=== PATIENT | female | born 1955 ===

== ENCOUNTER 2023-07-20 08:26 | Outpatient (AMB) | payer OTHER, SELFPAY ==
--- NOTE | 2023-07-20 08:30 | A.OFFVIS_ITS ---
Intake Vital Signs 07/20/23 08:31 Height 5 ft 1 in Weight 160 lb BMI 30.2 BP 110/64 Blood Pressure Location Rt brachial Position Sitting Pulse 68 Pulse Source Pulse Oximeter Pulse Oximetry (%) 97 Oxygen Delivery Method Room Air Intake Visit Reasons: E-EARLY INTERVENTION SPECIALIST: Dizziness & Guidiness-LVM Intake Note: Patient presents for dizziness of guidiness. Patient states Sheron been diagnosed with vistibular migraine,I have light sound and smell sensitivity. Allergies No Known Allergies Allergy (Verified 07/20/23 08:33) HPI HPI Comments History of Present Illness Details Right-handed 68-yr-old female presents for new pt evaluation of headache disorder, specifically vestibular migraine. Pt reports that she had an episode of not right in space dizziness a/w N/V/D x's 3 days where she could only be in a dark quiet room- this was approx 2.5 yrs ago. She was in her usual state of health, [place] in [place]. She recalls that she turned over in bed when a feeling of nausea and dizziness came over her. Then, she slowly started feeling better. She was still limiting motion to avoid any dizziness. She was able to take the drive home. Once home, she saw her PCP. She was referred to PT- saw a general PT x's 2 but this made her ill. Then she saw a vestibular PT x's a few months- this could also make her feel ill and nauseas afterwards- but this improved over time. By this time, she can look up/down, bend over better. She still has right ear fullness. She did see ENT- her hearing assessment was normal. Who advised her to follow an anti-inflammatory diet, which she was already following. She is a pescatarian. She has been having some neck pain. Recent c-spine x-ray showed degenerative changes. She can have right ear pain and headache after a flight. She is generally photophobic- lights can cause eye pain. She may feel queasy if laying flat- such as reclining at the dentist. Is waiting for a new pair of bifocals. Denies diplopia. She has a history motion sickness since childhood- especially triggered by long car rides, boat travel. She never had headache or migraine prior. [facility] Surgical History (Updated 07/20/23 @ 08:34 by XANDER Pizarro) Hx laparoscopic cholecystectomy Family History Mother Renal failure Bowel obstruction Father Prostate tumor Social History (Updated 07/20/23 @ 08:34 by XANDER Pizarro) Alcohol intake: never Patient Tobacco Use Status: Never used Tobacco Review of Systems Const Details: See scanned ROS form Physical Exam Vital Signs: Last Vital Signs Pulse 68 07/20/23 08:31 BP 110/64 07/20/23 08:31 Pulse Ox 97 07/20/23 08:31 Oxygen Delivery Method Room Air 07/20/23 08:31 BMI result Body Mass Index 30.2 Const Orientation/consciousness: patient oriented x3 HEENT Other: No palpable scalp tenderness. Head: Yes normocephalic Resp Effort & Inspection: normal respiratory effort and able to speak in complete sentences Neuro General: patient oriented x3 Cranial nerves: Yes CN's II-XII intact bilaterally Cognition (Neuro): normal cognition Gait exam (Neuro): Normal gait present Motor exam (neuro): 5/5 motor strength present throughout Deep tendon reflexes (DTR's): Right triceps reflex intensity grade: 2+, Left triceps reflex intensity grade: 2+, Rt Biceps (C5, C6): 2+, Left biceps reflex intensity grade: 2+, Right brachioradialis reflex intensity grade: 2+, Left brachioradialis reflex intensity grade: 2+, Right patellar reflex intensity grade: 2+ and Left patellar reflex intensity grade: 2+ Coordination: [id number] test normal, tandem gait normal and Romberg test negative Pupils: Normal pupillary reactivity/response: bilateral Psych Appearance: grossly normal Mental Status: mental status grossly normal Speech and movement: Normal speech and movement present Affect: normal affect Attitude: cooperative Thought process: Normal thought process present Assessment & Plan Assessment & Plan (1) Dizziness: Comment: diff dx- central vertigo, BPPV, vestibular migraine (however per ICDH-3 criteria pt would need to have had 5 episodes) Code(s): R42 - Dizziness and giddiness (2) Photophobia: Code(s): H53.149 - Visual discomfort, unspecified (3) Chronic right ear pain: Code(s): H92.01 - Otalgia, right ear; G89.29 - Other chronic pain Plan Pt is advised to undergo brain MRI to asses for secondary central etiologies of dizziness, ear fullness, ear pain. Follow-up in 3 months or sooner prn Orders: Orders MR head/brain wo/w con 07/20/23 G89.29 - Other chronic pain, H53.149 - Visual discomfort, unspecified, H92.01 - Otalgia, right ear, R42 - Dizziness and giddiness Coding Level of Care Code New Pt Level 4 (66270) Diagnoses Dizziness R42 Photophobia H53.149 Chronic right ear pain H92.01; G89.29
[2023-07-20 08:31] VITALS: BP 110/64; PULSE 68; O2SAT 97; BMI 30.2
== END 2023-07-20 09:38 | disposition home or self-care (01) ==
PROVIDERS: PCP Nurse Practitioner Family; Visit Provider Nurse Practitioner Family
DX: R42 Dizziness and giddiness (principal); H53.149 Visual discomfort, unspecified; H92.01 Otalgia, right ear; G89.29 Other chronic pain
CPT/HCPCS: 99204

== ENCOUNTER → 2023-07-20 08:26 | Outpatient (BNVA) | payer OTHER, SELFPAY | PROVIDERS: PCP Nurse Practitioner Family; Visit Provider Nurse Practitioner Family ==

== ENCOUNTER 2023-08-27 10:56 | Outpatient (REF) | payer MEDICARE, SELFPAY ==
--- NOTE | ~2023-08-27 | MR_ITS ---
EXAMINATION: MR BRAIN WITHOUT AND WITH CONTRAST CLINICAL INFORMATION: Dizziness and giddiness. Right side tinnitus. COMPARISON: None available. TECHNIQUE: Multiplanar, multisequence MRI of the brain was obtained before and after the intravenous administration of 7 mL gadavist. FINDINGS: There is no pathologic intracranial enhancement. There is no hydrocephalus, extra-axial surface collection, or herniation. The major flow voids at the skull base are preserved. There is no acute infarct on diffusion-weighted imaging. There is mild microvascular ischemic change. The midline structures are unremarkable. The cerebellar tonsils are marginally low-lying and have a somewhat pointed configuration. The cerebellum and brainstem are normal. There is a tiny intrinsically T1 hyperintense focus in the right IAC. The craniocervical junction is normal. Osseous marrow signal intensity is homogenous. The orbits are symmetric and within normal limits. There is mild ethmoid air cell mucosal disease. Mastoid air cells are clear. MR/MR head/brain wo/w con IMPRESSION: - No acute intracranial abnormality. - There is mild microvascular ischemic change. - The cerebellar tonsils are marginally low-lying and have a somewhat pointed configuration. - There is a tiny intrinsically T1 hyperintense focus in the right IAC. The etiology of this is uncertain. Although it may be artifactual, a small schwannoma is not completely excluded especially given the history of right sided tinnitus. Dedicated IAC protocol MRI can be performed as clinically warranted.
[2023-08-27] MEDS: gadobutroL 7.5 ML VIAL IVPUSH (12:06)
== END 2023-08-27 10:57 | disposition home or self-care (01) ==
LOC: HO.MRI 10:56
PROVIDERS: PCP Nurse Practitioner; Visit Provider Nurse Practitioner Family
DX: R42 Dizziness and giddiness (principal); H53.149 Visual discomfort, unspecified; H92.01 Otalgia, right ear; G89.29 Other chronic pain
CPT/HCPCS: 70553; A9585

== ENCOUNTER 2023-10-15 07:54 | Outpatient (AMB) | payer OTHER, SELFPAY ==
[2023-10-15 08:16] VITALS: BP 124/70; BMI 30.2
--- NOTE | 2023-10-15 08:16 | A.OFFVIS_ITS ---
Intake Vital Signs 10/15/23 08:16 Height 5 ft 1 in Weight 160 lb BMI 30.2 BP 124/70 Blood Pressure Location Rt brachial Position Sitting Intake Visit Reasons: vertigo Intake Note: Patient presents for 3 month follow up. I have a vestibular problem, I get vertigo . Allergies No Known Allergies Allergy (Verified 10/15/23 08:19) Medication List - Last Reconciled 10/23/23 by SAMUEL Keith No Known Home Meds HPI HPI Comments History of Present Illness Details 68-yr-old female presents for f/u visit. Pt denies any significant interval medical changes. No interval episodes of not right in space dizziness a/w N/V/D. She has been having some neck pain. Recent c-spine x-ray showed degenerative changes. She can have right ear pain and headache after a flight. Took a flight in Dec- which was not terrible, but did have the SALES and ear pain. She can have a headache at the end of stressful day- a pressure, eye pain, prone to rubbing her eyes a/w photophobia, phonophobia, queasy. Can last a little while. Frequency varies- can be a few days in a row or not have one for a week or two. Usually triggered by being overall more active. Usually tx's w/ rest, light avoidance, tea, and water. Rarely takes an Ibuprofen for the SALES. Still photophobic- lights can cause eye pain. She may still feel queasy if laying flat. Such as reclining at the dentist or laying flat in her back in yoga. Denies diplopia. 08/27/23, MR/MR head/brain wo/w con IMPRESSION: - No acute intracranial abnormality. - There is mild microvascular ischemic c hange. - The cerebellar tonsils are marginally low-lying and have a somewhat pointed configuration. - There is a tiny intrinsically T1 hyper intense focus in the right IAC. The etiology of this is uncertain. Although it may be artifactual, a small schwannoma is not completely excluded especially given the history of right sided tinnitus. Dedicated IAC protocol MRI can be performed as clinically warranted. PFSH Surgical History Hx laparoscopic cholecystectomy Family History Mother Renal failure Bowel obstruction Father Prostate tumor Social History Alcohol intake: never Patient Tobacco Use Status: Never used Tobacco Review of Systems Const All systems reviewed & are unremarkable except as noted in HPI and below Physical Exam Vital Signs: Last Vital Signs BP 124/70 10/15/23 08:16 BMI result Body Mass Index 30.2 Const General: cooperative and no acute distress Orientation/consciousness: patient oriented x3 HEENT Head: Yes normocephalic Resp Effort & Inspection: normal respiratory effort and able to speak in complete sentences Neuro General: patient oriented x3, gait normal and CN's II-XI intact bilaterally Cognition (Neuro): normal cognition Motor exam (neuro): 5/5 motor strength present throughout Psych Appearance: grossly normal Mental Status: mental status grossly normal Speech and movement: Normal speech and movement present Affect: normal affect Attitude: cooperative Thought process: Normal thought process present Thought content: Normal thought content present Insight: Good insight present (Psych) Judgement: Good judgement present (Psych) Assessment & Plan Assessment & Plan (1) Dizziness: Comment: diff dx- central vertigo, BPPV, vestibular migraine (however per ICDH-3 criteria pt would need to have had 5 episodes) Code(s): R42 - Dizziness and giddiness (2) Photophobia: Code(s): H53.149 - Visual discomfort, unspecified (3) Chronic right ear pain: Code(s): H92.01 - Otalgia, right ear; G89.29 - Other chronic pain (4) Migraine without aura: Code(s): G43.009 - Migraine without aura, not intractable, without status migrainosus (5) Abnormal brain MRI: Code(s): R90.89 - Other abnormal findings on diagnostic imaging of central nervous system Plan Reviewed Brain MRI report and images w/wo contrast- mild microvascular ischemic change, cerebellar tonsils are marginally low-lying and have a somewhat pointed configuration, tiny intrinsically T1 hyperintense focus in the right IAC, a small schwannoma is not completely excluded especially given the history of right sided tinnitus. We did request a f/u dedicated IAC protocol MRI, however this was denied by insurance as a duplicate request. As she has not had recurrence of the dizziness attacks, we will hold MRI request for now, and plan for 1 yr repeat MRI w/ dedicated right IAC protocol to monitor right IAC T1 hyperintensity and low-lying cerebellar tonsils. Monitor headaches- May use Ibuprofen, rest, tea, fluids prn. If worsens, consider trail of acute migraine tx. f/u in 6 months or sooner prn Coding Level of Care Code Est Pt Level 4 (14569) Diagnoses Dizziness R42 Photophobia H53.149 Chronic right ear pain H92.01; G89.29 Migraine without aura G43.009 Abnormal brain MRI R90.89
== END 2023-10-15 09:10 | disposition home or self-care (01) ==
PROVIDERS: PCP Nurse Practitioner Family; Visit Provider Nurse Practitioner Family
DX: R42 Dizziness and giddiness (principal); H53.149 Visual discomfort, unspecified; H92.01 Otalgia, right ear; G89.29 Other chronic pain; G43.009 Migraine without aura, not intractable, without status migrainosus; R90.89 Other abnormal findings on diagnostic imaging of central nervous system
CPT/HCPCS: 99214

== ENCOUNTER → 2023-10-15 07:54 | Outpatient (BNVA) | payer OTHER, SELFPAY | PROVIDERS: PCP Nurse Practitioner Family; Visit Provider Nurse Practitioner Family ==

== ENCOUNTER 2024-04-21 07:38 | Outpatient (AMB) | payer OTHER, SELFPAY ==
--- NOTE | 2024-04-21 07:38 | MHC.OFFVIS ---
Intake Visit Reasons: 6M follow up ([employer]CONF Intake Note: patient presents for 6 month follow up. patienit has no issues but mentioned she wanted to discuss her ear. Allergies No Known Allergies Allergy (Verified 04/21/24 07:41) Medication List - Last Reconciled 04/21/24 by SAMUEL Keith No Known Home Meds HPI Comments Details: 69-yr-old female presents for f/u televideo visit via [employer]. Pt had a recent nasal basal cell carcinoma excision. Pt continues to a have a constant have pressure/fullness right ear. If she sleeps on her right side, her right ear may feel a bit funny or feel a little off/dizzy. When she has taken a flight, the right ear pressure is more prominent and bothersome- w/ shorter flights this resolves once plane has landed. She has noticed needing to ask others to repeat herself- more so when their is increased background noise. She had an ENT eval w/ Dr Hood- hearing eval was WNL. Denies usual dizziness or nausea. She is trying to manage her migraine with diet (avoiding sugar, chocolate, etc) and other conservative measures- such as wearing better sunglasses. She did have an uptick in her headaches following the basal cell excision. She usually tries not to take any prn analgesics. PFSH Surgical History Hx laparoscopic cholecystectomy Family History Mother Renal failure Bowel obstruction Father Prostate tumor Social History Alcohol intake: never Patient Tobacco Use Status: Never used Tobacco Physical Exam Const General: cooperative and no acute distress Orientation/consciousness: patient oriented x3 Resp Effort & Inspection: normal respiratory effort and able to speak in complete sentences Neuro General: patient oriented x3 Cognition (Neuro): normal cognition Psych Appearance: grossly normal Mental Status: mental status grossly normal Speech and movement: Normal speech and movement present Affect: normal affect Attitude: cooperative Telehealth Telehealth Telehealth Platform: [employer] Location of provider rendering services: practice address Location of patient: address on file Patient Identification confirmed using: Name, : Yes Telehealth method: video Patient verbally consented to treatment: Yes Patient verbally consented to billing insurance company: Yes Patient informed of any privacy concerns related to visit: Yes Minutes spent on Phone/Video with Pt.: 23 Assessment & Plan Assessment & Plan (1) Chronic right ear pain: Code(s): H92.01 - Otalgia, right ear; G89.29 - Other chronic pain Category: Medical (2) Abnormal brain MRI: Code(s): R90.89 - Other abnormal findings on diagnostic imaging of central nervous system Category: Medical (3) Migraine without aura: Code(s): G43.009 - Migraine without aura, not intractable, without status migrainosus Category: Medical (4) Dizziness: Comment: diff dx- central vertigo, BPPV, vestibular migraine (however per ICDH-3 criteria pt would need to have had 5 episodes) Code(s): R42 - Dizziness and giddiness Category: Medical Plan For right ear pain, dizziness: Reviewed Aug 2023, Brain MRI report and images w/wo contrast- mild microvascular ischemic change, cerebellar tonsils are marginally low-lying and have a somewhat pointed configuration, tiny intrinsically T1 hyperintense focus in the right IAC, a small schwannoma is not completely excluded especially given the history of right sided tinnitus. Will order f/u 1 yr repeat MRI w/ dedicated right IAC protocol to monitor right IAC T1 hyperintensity and low-lying cerebellar tonsils- due in Sep 2024. Trial Acetazolamide 125mg po tid prn air travel/ear pain/pressure s/s. For headaches- May use Ibuprofen, rest, tea, fluids prn. ? f/u in 6 months or sooner prn Orders: Orders MR head/brain wo/w con 09/08/24 G89.29 - Other chronic pain, H92.01 - Otalgia, right ear, R90.89 - Other abnormal findings on diagnostic imaging of central nervous system Medications: New acetazolamide 125 mg PO TID 7 days PRN 21 tabs 1RF ear pain and air travel Coding Level of Care Code Tele Est Pt Level 4 (03470) Diagnoses Chronic right ear pain H92.01; G89.29 Abnormal brain MRI R90.89 Migraine without aura G43.009 Dizziness R42
== END 2024-04-21 16:00 | disposition home or self-care (01) ==
LOC: HO.HSMS 07:38
PROVIDERS: PCP Nurse Practitioner; Visit Provider Nurse Practitioner Family
DX: H92.01 Otalgia, right ear (principal); G89.29 Other chronic pain; R90.89 Other abnormal findings on diagnostic imaging of central nervous system; G43.009 Migraine without aura, not intractable, without status migrainosus; R42 Dizziness and giddiness
CPT/HCPCS: 99214

== ENCOUNTER → 2024-04-21 07:38 | Outpatient (BNVA) | payer OTHER, SELFPAY | PROVIDERS: PCP Nurse Practitioner; Visit Provider Nurse Practitioner Family ==

== ENCOUNTER 2024-09-10 08:19 | Outpatient (REF) | payer OTHER, SELFPAY ==
[2024-09-10] MEDS: gadobutroL 7.5 ML VIAL IVPUSH (09:10)
== END 2024-09-10 08:20 | disposition home or self-care (01) ==
LOC: HO.MRI 08:19
PROVIDERS: PCP Nurse Practitioner; Visit Provider Nurse Practitioner Family
DX: R90.89 Other abnormal findings on diagnostic imaging of central nervous system (principal); H92.01 Otalgia, right ear; G89.29 Other chronic pain
CPT/HCPCS: 70553; A9585

== ENCOUNTER → 2024-11-20 09:40 | Outpatient (BNVA) | payer OTHER, SELFPAY | PROVIDERS: PCP Nurse Practitioner; Visit Provider Nurse Practitioner Family ==

== ENCOUNTER → 2024-11-20 09:40 | Outpatient (AMB) | payer OTHER, SELFPAY ==
--- NOTE | 2024-11-20 09:36 | A.OFFVIS_ITS ---
Vital Signs 11/20/24 09:37 Weight 160 lb Intake Visit Reasons: 6 Month F/U Administrative Asst Required: No Allergies No Known Allergies Allergy (Verified 04/21/24 07:41) Medication List - Last Reconciled 11/20/24 by SAMUEL Keith acetazolamide 125 mg PO TID PRN 10 days HPI Comments Details: 69-yr-old female presents for f/u televideo visit for right ear discomfort via [employer]. Pt took a recent floght to [place], a 3.5 hr flight, which triggered increased right ear discomfort, fullness. Then during the trip, about 5 days later, she was a passenger in a car and had intense N/V/D. She has had motion sickness in the past, but this has been happening more regularly. When she is a passenger in a car, she does not read or look at her phone. She does not have motion sickness when she is driving herself. Baseline right ear symptoms: a constant have pressure/fullness right ear. Sleeping on right side the trigger right ear ?funny? sensation or feeling slightly off/dizzy. She does use OTC Dramamine p.r.n., which helps some. She never tried the p.r.n. Acetazolamide. She is trying to manage her migraine with diet (avoiding sugar, chocolate, etc) and other conservative measures- such as wearing better sunglasses. She usually tries not to take any prn analgesics, however recently was starting to not feel well, and encourage her to take Tylenol which was quite helpful. 09/10/2024, MR/MR head/brain wo/w con IMPRESSION: 1. No acute intracranial abnormalities. No abnormal intracranial enhancement. 2. Mild underlying microangiopathy and generalized cerebral volume loss. 3. Chiari I malformation. 4. The right AICA forms a hairpin turn within the right internal auditory canal. This finding is of indeterminate clinical significance but is commonly seen incidentally. 5. No additional MRI abnormalities to explain the patient's symptoms. [facility] Surgical History Hx laparoscopic cholecystectomy Family History Mother Renal failure Bowel obstruction Father Prostate tumor Social History Alcohol intake: never Patient Tobacco Use Status: Never used Tobacco Physical Exam Const General: cooperative and no acute distress Orientation/consciousness: patient oriented x3 Resp Effort & Inspection: normal respiratory effort and able to speak in complete sentences Neuro General: patient oriented x3 Cognition (Neuro): normal cognition Psych Appearance: grossly normal Mental Status: mental status grossly normal Speech and movement: Normal speech and movement present Affect: normal affect Attitude: cooperative Telehealth Telehealth Telehealth Platform: [employer] Location of provider rendering services: practice address Location of patient: address on file Patient Identification confirmed using: Name, : Yes Telehealth method: video Patient verbally consented to treatment: Yes Patient verbally consented to billing insurance company: Yes Patient informed of any privacy concerns related to visit: Yes Minutes spent on Phone/Video with Pt.: 25 Assessment & Plan Assessment & Plan (1) Chronic right ear pain: Code(s): H92.01 - Otalgia, right ear; G89.29 - Other chronic pain Category: Medical (2) Abnormal brain MRI: Code(s): R90.89 - Other abnormal findings on diagnostic imaging of central nervous system Category: Medical (3) Migraine without aura: Code(s): G43.009 - Migraine without aura, not intractable, without status migrainosus Category: Medical (4) Dizziness: Comment: diff dx- central vertigo, BPPV, vestibular migraine (however per ICDH-3 criteria pt would need to have had 5 episodes) Code(s): R42 - Dizziness and giddiness Category: Medical Plan For right ear pain, dizziness: Reviewed 09/10/2024 MRI brain w/wo, which showed mild underlying microangiopathy and generalized cerebral volume loss, stable Chiari I malformation, and right AICA forms a hairpin turn within the right internal auditory canal. It is possible that pt's right ear symptoms, especially at higher altitudes and when flying, maybe associated with finding of the right AICA forming a hairpin turn within the right internal auditory canal. Discussed doing additional testing, such as head CTA/MRA, referring patient for neuro endovascular/ENT/facial pain clinic- patient declines at this time, as annual to manage the symptoms fairly well at this point. She will let us know if symptoms become worse. Patient is again advised to try Acetazolamide 125mg po tid prn air travel/ear pain/pressure s/s. Reviewed common side effects, including urinary frequency, paresthesia. May use OTC Dramamine p.r.n. May try using vestibular assess stability feature on her iPhone- to reduce motion sickness triggered by being a passenger in a moving vehicle. For headaches- May use Tylenol/Ibuprofen, rest, tea, fluids prn. ? f/u in 6 months or sooner prn Medications: Changed From acetazolamide 125 mg PO TID 7 days PRN 21 tabs 1RF ear pain and air travel To acetazolamide 125 mg PO TID 10 days PRN 30 tabs 1RF ear pain, motion sickness, air travel Coding Level of Care Code Tele Est Pt Level 4 (11496) Diagnoses Chronic right ear pain H92.01; G89.29 Abnormal brain MRI R90.89 Migraine without aura G43.009 Dizziness R42
--- OUTSIDE RECORDS SUMMARY | 2024-11-20 10:12 | XMS_ITS | Data Portability ---
Author Organization [facility], [facility] Address [address] [place] [address] Care Team Providers Care Claims Clerk Name Role Phone KEILA HEARN Primary Care Provider [phone] BETH WARE Curtain Cutter MODESTO LEAVITT Neurologist Assessment Encounter Date Assessment Date Assessment LastModified by Organization Details LastModified Time 04/11/2024 04/11/2024 Assessment: Progression of core stabilization exercises issued today. Good initial grasp of motor control tasks, should be able to progress quickly to more functional variations. mild irritability R SIJ pain Castañeda deficits/impairme nts: tbd Functional limitations: walking and sitting tolerance Response to treatment: patient demonstrates safe and appropriate performance of initial home exercise program. Patient tolerated all interventions well and denied adverse events upon departure. Patient would benefit from skilled PT intervention in order to address the aforementioned impairments, maximize patient function, and achieve patient specific goals. Plan: Patient to return for 4 visits over 4 weeks. Treatment to include the following as indicated: 00300 Therapeutic Exercise, 74291 Neuromuscular Re-education, 53320 Gait Training, 29845 Manual Therapy, 35096 Therapeutic Activity, and 44089 Self-care and ADL Training Next visit: progress to standing versions of home exercises [email or web address] Not available 04/11/2024 09:28:40 04/14/2024 04/14/2024 We completed you r Medicare Wellness exam today. This was an opportunity to assess your overall well being including your ability to care for yourself, your mobility, memory, mental health, as well as your safety. With advancing age, it is important to assign someone in your life as your Health Care Proxy (HCP). This person should know what is important to you and what your wishes are for medical procedures if you cannot communicate your wishes yourself (severe illness, unconsciousness). We discussed having a completed Health Care Proxy form today. In addition, today we started a conversation about your End of Life wishes. These conversations will continue over the years. Please consider reading the book, Being Mortal by Richard Redding to help frame future conversations. We discussed the purpose of a MOLST form (Medical Orders for Life Sustaining Treatment) and completed this form if appropriate per your wishes. Vision and Hearing are senses that are critically important as we age. When impaired, they can contribute to memory loss, falls, and make it harder to drive, talk to family and friends, and engage in the world. Please get your vision checked yearly and your hearing checked when you start to notice hearing loss. We discussed approaches to lowering your risk of heart disease and stroke . Your blood pressure is at goal. Your cholesterol is at goal. We discussed cancer screening you may need as well as vaccines to prevent infections. Colon Cancer : Your risk of colon cancer is average. Due for colorectal screenin. If you are not planning to have a colonoscopy please screen with stool cards yearly. Breast Cancer : Breast Cancer Screening (mammography). Next mammogram due: 2023. Cervical Cancer Screening (pap test). Next pap due: not needed. Influenza Vaccine : Flu shot yearly. Tetanus Vaccine : Every 10 years. Due: 2032. The following vaccines are available from your pharmacy: Pneumonia Vaccine : PCV20: once after age 65. Shingles Vaccine : 2 shots after age 50. Covid Vaccine : Make sure you have received the most up to date covid vaccine. [email or web address] Not available 04/14/2024 14:30:00 04/25/2024 04/25/2024 Assessment: Further progression into bridge march and floor plank. 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 mild irritability R SIJ pain Functional limitations: walking and sitting tolerance Response to treatment: patient demonstrates safe and appropriate performance of initial home exercise program. Patient tolerated all interventions well and denied adverse events upon departure. Patient would benefit from skilled PT intervention in order to address the aforementioned impairments, maximize patient function, and achieve patient specific goals. Plan: Patient to return for 4 visits over 4 weeks. Treatment to include the following as indicated: 16593 Therapeutic Exercise, 13106 Neuromuscular Re-education, 02664 Gait Training, 39944 Manual Therapy, 70442 Therapeutic Activity, and 30448 Self-care and ADL Training Next visit: re-evaluate [email or web address] Not available 04/25/2024 12:13:57 05/16/2024 05/16/2024 Assessment: mild irritability R SIJ pain Since initial evaluation, patient has made significant progress towards her rehab goals. Pt appropriate for discharge to home exercise program based on progress towards established goals. Pt in agreement with this plan. Pt to contact attending PT or referring provider with any changes in symptoms or future concerns. Functional limitations: walking and sitting tolerance Response to treatment: patient demonstrates safe and appropriate performance of initial home exercise program. Patient tolerated all interventions well and denied adverse events upon departure. Patient would benefit from skilled PT intervention in order to address the aforementioned impairments, maximize patient function, and achieve patient specific goals. Patients' prognosis for improvement with PT care is GOOD. Goal Progress Comment Pt will perform 1 min front plank to demonstrate improved trunk endurance. not assessed today Independent in comprehensive HEP. goal met Pt will walk 4 mi with 2/10 pain or less in the 24 hrs following. goal met new Additional goals to be added as appropriate. Plan: d/c [email or web address] Not available 05/16/2024 13:32:36 Plan of Treatment Reminders Order Date Submit Date Provider Last Modified By Organization Details Last Modified Time Details Appointments Wellness Visit 30 2024 09:00A M Keila Hearn NP Not available Not available Not available Lab None recorded. Referral None recorded. Procedures None recorded. Surgeries None recorded. Imaging None recorded. Medication Orders valacyclo vir 500 mg tablet 2023 [id number] MERLYN Michel [id number] ([facility]), [address] [facility], [place], [place], [id number], 04/14/2024 09:16:33 Patient Targets Encounter Date Encounter Id Patient Goals Patient Target Last Modified By Organization Details Last Modified Time Add strength training (increase wts from 2lb to 5lb) [email or web address] Not available 04/14/2024 14:28:17 Patient Instructions Encounter Date Encounter Id Patient Instructions Last Modified By Organization Details Last Modified Time 04/11/2024 [id number] Patient instruct ed to inform attending physical therapist of any apprehension, pain, discomfort, or change in symptoms throughout the course of treatment. Patient verbalized understanding and agreed to comply. [email or web address] Not available 04/11/2024 09:01:46 04/14/2024 [id number] Breast self-exam , or regularly examining your breasts on your own, can be an important way to find a breast cancer early, when it? s more likely to be treated successfully. While no single test can detect all breast cancers early, [email or web address] believes that performing breast self-exam in combination with other screening methods can increase the odds of early detection. Breast self-exam is a convenient, no-cost tool that you can use on a regular basis and at any age. We recommend that all women routinely perform breast self-exams as part of their overall breast cancer screening strategy. ?? How to do a breast self-exam: The five steps Step 1 Begin by looking at your breasts in the mirror with your shoulders straight and your arms on your hips. Here's what you should look for: Breasts that are their usual size, shape, and color Breasts that are evenly shaped without visible distortion or swelling If you see any of the following changes, bring them to your doctor's attention: Dimpling, puckering, or bulging of the skin A nipple that has changed position or an inverted nipple (pushed inward instead of sticking out) Redness, soreness, rash, or swelling Step 2 Now, raise your arms and look for the same changes. Step 3 While you're at the mirror, look for any signs of fluid coming out of one or both nipples (this could be a watery, milky, or yellow fluid or blood). Step 4 Next, feel your breasts while lying down, using your right hand to feel your left breast and then your left hand to feel your right breast. Use a firm, smooth touch with the first few finger pads of your hand, keeping the fingers flat and together. Use a circular motion, about the size of a quarter. Cover the entire breast from top to bottom, side to side ? from your collarbone to the top of your abdomen, and from your armpit to your cleavage. Follow a pattern to be sure that you cover the whole breast. You can begin at the nipple, moving in larger and larger circles until you reach the outer edge of the breast. You can also move your fingers up and down vertically, in rows, as if you were mowing a lawn. This up-and-down approach seems to work best for most women. Be sure to feel all the tissue from the front to the back of your breasts: for the skin and tissue just beneath, use light pressure; use medium pressure for tissue in the middle of your breasts; use firm pressure for the deep tissue in the back. When you've reached the deep tissue, you should be able to feel down to your ribcage. Step 5 Finally, feel your breasts while you are standing or sitting. Many women find that the easiest way to feel their breasts is when their skin is wet and slippery, so they like to do this step in the shower. Cover your entire breast, using the same hand movements described in step 4. [email or web address] Not available 04/14/2024 14:27:59 04/25/2024 [id number] Patient instruct ed to inform attending physical therapist of any apprehension, pain, discomfort, or change in symptoms throughout the course of treatment. Patient verbalized understanding and agreed to comply. [email or web address] Not available 04/25/2024 11:42:00 05/16/2024 [id number] Patient instruct ed to inform attending physical therapist of any apprehension, pain, discomfort, or change in symptoms throughout the course of treatment. Patient verbalized understanding and agreed to comply. Not available 05/16/2024 09:14:40 Reason for Referral None Reported. Results Created Date Observation Date Name Description Value Unit Range Abnormal Flag Note LastModifiedBy Organization Detail LastModifiedTime 04/16/2004/16/2024 CBC WBC 6.06 K/??L 3.98-1 0.04 Not Available [facility] [address] [place], [address], 04/16/2024 10:42:34 04/16/20 24 04/16/2024 CBC RBC 4.21 M/??L 3.93-5 .22 Not Available [facility] [address] [place], [address], 04/16/2024 10:42:34 04/16/20 24 04/16/2024 CBC HGB 12.7 g/dL 11.2-1 5.7 Not Available [address], [address], 04/16/2024 10:42:34 04/16/20 24 04/16/2024 CBC HCT 39.1 % 34.1-4 4.9 Not Available [address], [address], 04/16/2024 10:42:34 04/16/20 24 04/16/2024 CBC MCV 92.9 fL 79.4-9 4.8 Not Available [address], [address], 04/16/2024 10:42:34 04/16/20 24 04/16/2024 CBC MCH 30.2 pg 25.6-3 2.2 Not Available [address], [address], 04/16/2024 10:42:34 04/16/20 24 04/16/2024 CBC MCHC 32.5 g/dL 32.2-3 5.5 Not Available [address], [address], 04/16/2024 10:42:34 04/16/20 24 04/16/2024 CBC plt 285 K/??L 182-36 9 Not Available [address], [address], 04/16/2024 10:42:34 04/16/20 24 04/16/2024 CBC MPV 11.2 fL 9.4-12 .3 Not Available [address], [address], 04/16/2024 10:42:34 04/16/20 24 04/16/2024 CBC neut% 43.2 % 34.0-7 1.1 Not Available [address], [address], 04/16/2024 10:42:34 04/16/20 24 04/16/2024 CBC neut# 2.62 1.56-6 .13 Not Available [address], [address], 04/16/2024 10:42:34 04/16/20 24 04/16/2024 CBC lymph % 48.3 % 19.3-5 1.7 Not Available [address], [address], 04/16/2024 10:42:34 04/16/20 24 04/16/2024 CBC lymph # 2.93 K/??L 1.18-3 .74 Not Available [address], [address], 04/16/2024 10:42:34 04/16/20 24 04/16/2024 CBC mono% 6.6 % 4.7-12 .5 Not Available [address], [address], 04/16/2024 10:42:34 04/16/20 24 04/16/2024 CBC mono# 0.40 0.24-0 .56 Not Available [address], [address], 04/16/2024 10:42:34 04/16/20 24 04/16/2024 CBC eo% 1.2 % 0.7-5. 8 Not Available [address], [address], 04/16/2024 10:42:34 04/16/20 24 04/16/2024 CBC eo# 0.07 0.04-0 .36 Not Available [address], [address], 04/16/2024 10:42:34 04/16/20 24 04/16/2024 CBC baso% 0.5 % 0.1-1. 2 Not Available [address], [address], 04/16/2024 10:42:34 04/16/20 24 04/16/2024 CBC baso# 0.03 0.00-0 .08 Not Available [address], [address], 04/16/2024 10:42:34 04/16/20 24 04/16/2024 CBC RDW-CV 12.6 % 11.7-1 4.4 Not Available [address], [address], 04/16/2024 10:42:34 04/16/20 24 04/16/2024 CBC Ig% 0.200 % 0.000- 1.500 Ig % >0.5 Indic ates possi ble Left Shift Not Available [address], [address], 04/16/2024 10:42:34 04/16/20 24 04/16/2024 CBC Ig# 0.010 0.000- 0.093 Not Available [address], [address], 04/16/2024 10:42:34 04/16/20 24 04/16/2024 CBC NRBC% 0.0 % 0.0-0. 2 Not Available [address], [address], 04/16/2024 10:42:34 04/16/20 24 04/16/2024 CBC NRBC# 0.000 0.000- 0.012 Not Available [address], [address], 04/16/2024 10:42:34 04/16/20 24 04/17/2024 BASIC METAB OLIC PANEL glucose 86 mg/dL 70-100 Not Available [address], [address], 04/17/2024 14:29:02 04/16/20 24 04/17/2024 BASIC METAB OLIC PANEL BUN 11 mg/dL 7-18 Not Available [address], [address], 04/17/2024 14:29:02 04/16/20 24 04/17/2024 BASIC METAB OLIC PANEL creatinine 0.8 mg/dL 0.8-1. 3 Not Available [address], [address], 04/17/2024 14:29:02 04/16/20 24 04/17/2024 BASIC METAB OLIC PANEL B/C 13.8 ratio Not Available [address], [address], 04/17/2024 14:29:02 04/16/20 24 04/17/2024 BASIC METAB OLIC PANEL GFR >=60ML /MIN mL/mi n normal >=60m L/min - Sagrario l or midly reduc ed <60mL /min- Decre ased kidne y funct ion <15mL /min - Kidne y failu re Feng y Medic al Group calcu lates estim ated Glome rular Filtr ation Rate (eGFR ) using the Chron ic Kidne y Disea se Epide miolo gy Colla borat ion (CKD- EPI) Equat ion (Keara castellanos et. al 2020) as recom kimberly d by the Natio nal Kidne y Found ation . eGFR is based on age, serum creat inine , and sex. CKD-E PI does not calcu late eGFR by race, does not apply to child vin (age <18 years ), and shoul d not be used in pregn jacob. Not Available [address], [address], 04/17/2024 14:29:02 04/16/20 24 04/17/2024 BASIC METAB OLIC PANEL sodium 139 mmol/ L 136-14 5 Not Available [address], [address], 04/17/2024 14:29:02 04/16/20 24 04/17/2024 BASIC METAB OLIC PANEL potassium 4.6 mmol/ L 3.5-5. 1 Not Available [address], [address], 04/17/2024 14:29:02 04/16/20 24 04/17/2024 BASIC METAB OLIC PANEL chloride 101 mmol/ L 96-107 Not Available [address], [address], 04/17/2024 14:29:02 04/16/20 24 04/17/2024 BASIC METAB OLIC PANEL anion gap 2.5 5.0-15 .0 low Not Available [address], [address], 04/17/2024 14:29:02 04/16/20 24 04/17/2024 BASIC METAB OLIC PANEL CO2 36 mmol/ L 21-32 high Not Available [address], [address], 04/17/2024 14:29:02 04/16/20 24 04/17/2024 BASIC METAB OLIC PANEL calcium 9.1 mg/dL 8.5-10 .3 Not Available [address], [address], 04/17/2024 14:29:02 04/16/20 24 04/17/2024 LIPID PANEL cholesterol 193 mg/dL <200 mg/dl Yusuf able 200-2 39 mg/dl Borde rline High >240 mg/dl High Not Available [address], [address], 04/17/2024 14:29:02 04/16/20 24 04/17/2024 LIPID PANEL triglyceride s 82 mg/dL <150 mg/dL Sagrario l 150-1 99 mg/dL Borde rline High 200-4 99 mg/dL High >500 mg/dL Very High Not Available [address], [address], 04/17/2024 14:29:02 04/16/20 24 04/17/2024 LIPID PANEL direct HDL 59 mg/dL <40 mg/dl - Major Risk for CHD >60 mg/dl - Negat za Risk for CHD Not Available [address], [address], 04/17/2024 14:29:02 04/16/20 24 04/17/2024 LDL - CALCU LATED LDL - calculated 117.6 RISK CATEG ORY LDL GOAL _ CHD or CHD Risk Equiv alent s <100 mg/dl (10-y ear risk >20%) 2+ Risk Facto rs <130 mg/dl (10-y ear risk <= 20%) 0-1 Risk Facto r??? <160 mg/dl ??? Almos t all peopl e with 0-1 risk facto r have a 10 year risk <10%, thus 10 year risk asses ment in peopl e with 0-1 risk facto r is not neces david. Not Available [address], [address], 04/17/2024 14:29:03 09/22/20 24 09/10/2024 MRI, head, w/wo contr ast No observ ation record ed. [email or web address] [facility] [address] [place], [address], 09/22/2024 09:32:34 Result Notes None recorded. 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 16323 Active 2020 Followed by ENT, Neuro & NeuroSur honey Hearn NP [address] [place], [place] [address], [address], [facility] [place] 09:19:22 Recurren t herpes simplex 48240990 Active 2020 Keila Hearn NP [address] [place], [place] [address], [address], [facility] 13:34:03 Vertigo 237652248 Active 2021 Nallely Griggs MD [address] [place], [place] [address], [address], [facility] 08:51:25 Migraino us vertigo 781985626 Active 2021 Nallely Griggs MD [address] [place], [place] [address], [address], [facility] [place] [facility] 08:51:43 Basal cell carcinom a of skin 754858145 Active 2023 LEFT SIDE OF NOSE, FOLLOWED BY DR ERIKA Hearn NP [address] [place], [place] [address], [address], [facility] [place] [facility] 09:18:04 Osteopor osis 60142604 Active 2023 PER 2020 BONE DENSITY FEMORAL HEAD The BMD measured at the right femoral neck is 0.692 g/cm2. T-score = -2.5. Total Hip The BMD measured at the total mean proximal femur is 0.713 g/cm2. T-score = -2.3. [place], [address], [facility] [place] 13:30:49 Acquired trigger finger 1541799 Completed 200201/29/2016 SAMUEL Kuhn [address] [place], [place] [address], [address], [facility] [place] 09:26:45 Bunion 056108216 Completed 200301/29/2016 SAMUEL Kuhn [address] [place], [place], [address], [facility] 09:26:45 Carpal tunnel syndrome 69968702 Completed 200201/29/2016 SAMUEL Kuhn [address] [place], [place], [address], [facility] 09:26:45 Presbyop ia 93252946 Active 2006 SAMUEL Kuhn [address] [place], [place], [address], [facility] [place] 09:26:45 Astigmat ism 83191367 Active 2006 LALY Cooper [address] [place], [place], [address], [facility] 09:15:27 Mononeur itis of upper limb Completed 200201/29/2016 SAMUEL Kuhn [place], [place], [address], [facility] 09:26:45 Neck pain 55787165 Completed 200308/27/2013 SAMUEL [place], [address], [facility] 09:26:45 Complica tion of medical care 81551305 Completed 200808/27/2013 SAMUEL Kuhn [address] [place], [place], [address], [facility] 09:26:45 Sciatica 28392545 Completed 200401/29/2016 SAMUEL [place], [address], [facility] 09:26:45 Hypermet ropia 60739889 Active 2006 Keila Hearn NP [address] [place], [place] [address], [place], [address], [facility] 09:18:49 Disorder of skeletal system 84841853 Completed 200308/27/2013 SAMUEL Kuhn [address] [place], [place] [address], [address], [facility] 09:26:45 Neoplasm of uncertai n behavior of skin 91325360 Completed 08/27/2013 SAMUEL Kuhn [address] [place], [place] [address], [address], [facility] 09:26:45 Mammogra phy abnormal 077551298 Active 2007 SAMUEL Kuhn [address] [place], [place] [address], [address], [facility] 09:26:45 Inguinal hernia 858492030 Completed 200002/08/2017 Sona Mijares NP [address] [place], [place] [address], [place], [address], [facility] 17:15:34 Dry eyes 922521187 Completed 200601/23/2024 Removal Reason: no longer an issue [facility] [address] [facility] [place], [address], [facility] 09:19:00 Menopaus al symptom 94968039 Completed 200208/27/2013 SAMUEL Kuhn [address] [place], [place] [address], [address], [facility] 09:26:45 Synoviti s/tenosy novitis - hand 716462181 Completed 200708/27/2013 SAMUEL Kuhn [address] [place], [place] [address], [address], [facility] 09:26:45 Elevated blood-pr essure reading without diagnosi s of hyperten ida 210929251 Completed 01/29/2016 SAMUEL Kuhn [address] [place], [address], [facility] [place] 09:26:45 Pain in limb 29540425 Completed 200208/27/2013 SAMUEL Kuhn [address] [place], [address], [facility] 09:26:45 Malaise and fatigue 089257377 Completed 200608/27/2013 SAMUEL Kuhn [address] [place], [address], [facility] 09:26:45 Problem Notes None recorded. Procedures Surgical History Date Name Laterality Status Provider Name and Address Organization Details Recorded Time 05/16/20 24 53068: Therapeutic Exercise completed GOMEZ MORRELL PT, DPT [address] [place] [address], [address], [facility] 05/16/2024 13:31:08 05/16/20 24 Treatment and Advice completed GOMEZ MORRELL PT, DPT [address] [place] [address], [address], [facility] 05/16/2024 13:32:03 04/25/20 24 28181: Therapeutic Exercise completed GOMEZ MORRELL PT, DPT [address] [place] [address], [address], [facility] 04/25/2024 12:13:02 04/25/20 24 Treatment and Advice completed GOMEZ MORRELL PT, DPT [address] [place] [address], [address], [facility] 04/25/2024 12:12:17 04/14/20 24 Medicare Wellness Visit completed Keila Hearn NP [address] [place] [address], [address], [facility] 04/13/2024 13:28:12 04/14/20 24 Cardiovascular disease risk reduction counseling completed Keila Hearn NP [address] [place] [address], [address], [facility] 04/13/2024 13:28:14 04/11/20 24 86990: Therapeutic Exercise completed GOMEZ MORRELL PT, DPT [address] [place], [address], [facility] 04/11/2024 09:28:48 04/11/20 24 Treatment and Advice completed GOMEZ MORRELL PT, DPT [address] [place], [address], [facility] 04/11/2024 09:23:16 04/04/20 24 Smoking Cessation Counselling completed GOMEZ MORRELL PT, DPT [address] [place], [address], [facility] 04/03/2024 12:29:23 04/04/20 24 Physical Activity Counselling completed GOMEZ MORRELL PT, DPT [address] [place], [address], [facility] 04/03/2024 12:29:23 04/04/20 24 21233: PT Eval Low Complexity completed GOMEZ MORRELL PT, DPT [address] [place], [address], [facility] 04/03/2024 12:29:23 04/04/20 24 Treatment and Advice completed GOMEZ MORRELL PT, DPT [address] [place], [address], [facility] 04/04/2024 10:56:32 03/31/20 24 mohs surgery completed Keila Hearn NP [address] [place], [address], [facility] [place] 09:10:02 01/28/20 24 Smoking Cessation Counselling cancelled GOMEZ MORRELL, PT, DPT [address] [place], [address], [facility] 01/24/2024 12:42:52 01/28/20 24 Physical Activity Counselling cancelled GOMEZ MORRELL, PT, DPT [address] [place], [address], [facility] 01/24/2024 12:42:52 01/28/20 24 [id number]: PT Eval Low Complexity cancelled GOMEZ MORRELL, PT, DPT [address] [place], [address], [facility] [place] 01/24/2024 12:42:52 01/28/20 24 Treatment and Advice cancelled GOMEZ MORRELL PT, DPT [address] [place], [address], [facility] [place] 01/24/2024 12:42:52 01/21/20 24 Smoking Cessation Counselling cancelled GOMEZ MORRELL, PT, DPT [address] [place], [address], [facility] [place] 01/17/2024 12:38:13 01/21/20 24 Physical Activity Counselling cancelled GOMEZ MORRELL, PT, DPT [address] [place], [address], [facility] [place] 01/17/2024 12:38:13 01/21/20 24 [id number]: PT Eval Low Complexity cancelled GOMEZ MORRELL PT, DPT [address] [place], [address], [facility] [place] 01/17/2024 12:38:13 01/21/20 24 Treatment and Advice cancelled GOMEZ MORRELL, PT, DPT [address] [place], [address], [facility] 01/17/2024 12:38:13 04/03/20 23 Medicare Wellness Visit completed Annalisa Galvan Brock [facility] 04/03/2023 09:05:35 03/29/20 21 Medicare Wellness Visit completed Sadi Cedeño [facility] 03/29/2021 11:55:16 03/29/20 21 prevention-cardio vascular risk reduction counseling completed Sadi Cedeño [facility] 03/29/2021 11:55:16 03/29/20 21 prevention-annual alcohol misuse screening completed Sadi Cedeño [facility] 03/29/2021 11:55:16 02/11/20 21 Physical Activity Counselling completed Lynette Clay, PT [address] [place], [address], [facility] 02/10/2021 13:37:26 02/11/20 21 [id number]: PT Eval Low Complexity completed Lynette Clay, PT [address] [place], [address], [facility] 02/10/2021 13:37:23 02/11/20 21 Treatment and Advice completed Lynette Clay, PT [address] [place], [address], [facility] 02/10/2021 17:20:34 02/08/20 21 Cerumen Removal - Irrigation/Lavage completed Lianne Cardozo RN [facility] 02/07/2021 09:09:15 03/25/20 20 Medicare Wellness Visit completed [facility] 03/25/2020 09:35:54 03/25/20 20 prevention-cardio vascular risk reduction counseling completed [facility] 03/25/2020 09:35:54 03/25/20 20 prevention-annual alcohol misuse screening completed [facility] 03/25/2020 09:35:54 03/27/20 19 Refraction completed Rios Tyson [facility] 03/27/2019 14:22:50 03/27/20 19 Optical Coherence Tomography (Retina) completed Aury Roberts OD [address] [place], [address], [facility] 04/08/2019 13:36:12 03/21/20 19 Medicare Wellness Visit completed Graciela Cancino MA [facility] 03/21/2019 08:30:45 04/03/20 18 Refraction completed Hue Deras [facility] 04/03/2018 08:52:01 11/05/19 18 Cerumen Removal - Irrigation/Lavage completed Gilda Goldsmith [facility] 11/05/2017 17:02:17 09/10/20 17 Sherie - Colonoscopy completed Germaine Rehman MD [address] [place], [address], [facility] 09/10/2017 08:41:27 01/20/20 16 Refraction completed Hue Deras [facility] 01/20/2016 15:34:04 Imaging Results Imaging Date Name Status LastModified by Organiz ation Details LastModified Time 09/10/2024 MRI, head, w/wo contrast completed [email or web address] [facility] [address], [place], [address], 09/22/2024 09:32:34 Procedure Notes None recorded. Medical Equipment None Reported. Allergies No known drug allergies Medications Name Sig Start Date Stop Date Status Note LastModified by Organization Details LastModified Time doxycyclin e hyclate 100 mg capsule TAKE 1 CAPSULE BY MOUTH TWICE DAILY WITH FOOD AND WATER FOR 5 DAYS 04/14 completed Not Available Not Available Not Available acetazolam miky 125 mg tablet active Not Available Not Available Not Available ondansetro n HCl 8 mg tablet TAKE 1 TABLET BY MOUTH THREE TIMES DAILY FOR 6 DAYS NEEDED 09/08 completed 03/29/21 pt no longer taking/ mlb Not Available Not Available Not Available fluorourac il 5 % topical cream 02/01 completed Not Available Not Available Not Available penicillin V potassium 500 mg tablet TAKE 1 TABLET BY MOUTH TWICE DAILY FOR 10 DAYS 09/08 completed Not Available Not Available Not Available valacyclov ir 500 mg tablet TAKE 1 TABLET BY MOUTH TWICE DAILY FOR 3 DAYS active Not Available Not Available No t Available triamcinol one acetonide 0.1 % topical cream JUAN THIN LAYER EXT AA BID 03/25 completed Not Available Not Available Not Available amoxicilli n 500 mg tablet Take 1 tablet every 8 hours by oral route for 7 days. 02/11 completed Not Available Not Available Not Available meclizine 25 mg tablet TAKE 1 TABLET BY MOUTH THREE TIMES DAILY FOR 5 DAYS NEEDED 09/08 completed 03/29/21 pt no longer taking/ mlb Not Available Not Available Not Available metronidaz ole 0.75 % topical cream Apply by topical route twice daily active Not Available Not Available No t Available hydroxyzin e HCl 25 mg tablet TAKE 1/2 TO 1 TABLET BY MOUTH EVERY 6 HOURS NEEDED FOR ANXIETY 01/22 completed Hasn't needed - was for an MRI Not Available Not Available Not Available mupirocin 2 % topical ointment APPLY A SMALL AMOUNT TO THE AFFECTED AREA BY TOPICAL ROUTE 3 TIMES PER DAY 03/25 completed Not Available Not Available Not Available Transderm- Scop 1 mg over 3 days transderma l patch Apply 1 patch every 72 hours by transder mal route. 09/08 completed 03/29/21 pt no longer taking/ mlb Not Available Not Available Not Available fluocinoni de 0.05 % topical cream APPLY TOPICALL Y TO THE AFFECTED AREA TWICE DAILY FOR UP TO 2 WEEKS AT A TIME 02/01 completed Not Available Not Available Not Available clotrimazo le 1 % topical cream JUAN EXT TO THE AFFECTED AND SURROUND ING AREAS BID IN THE MORNING AND IN THE PERRY 03/25 completed Not Available Not Available Not Available erythromyc in with ethanol 2 % topical gel APPLY A THIN LAYER TO THE AFFECTED AREA(S) BY TOPICAL ROUTE 2 TIMES PER DAY IN THE MORNING AND EVENING 03/25 completed Not Available Not Available Not Available GaviLyte-G 236 gram-22.74 gram-6.74 gram-5.86 gram oral solution 11/05 completed Not Available Not Available Not Available Vitals Date Recorded Body height Heart rate Body mass index (BMI) Body weight Systolic blood pressure Diastolic blood pressure Provider Name and Address Organization Details Last Updated DateTime 4 155.58 cm 88 /min 28.7 kg/m2 19582.6 3 g 112 mm[Hg] 52 mm[Hg] Germaine Watson CMA [facility] 4 08:50:44 Social History Question Answer Notes LastModified by Organizat ion Details LastModified Time Tobacco Smoking Status Never Smoker HARI Lovelace, [facility] 02/07/2021 08:23:06 Do You Have An Advance Directive? No [email or web address] Information not available 10/06/2022 What Is Your Level Of Alcohol Consumption? None Information not available 11/10/2014 Do You Wear A Helmet When Biking? Yes Information not available 01/29/2016 What Is Your Level Of Caffeine Consumption? Occasional 1 Cup Of Decaf Coffee Daily Information not available 04/03/2023 How Much Tobacco Do You Chew? None Information not available 11/10/2014 Are You Currently Employed? Yes Retired. Information not available 04/03/2023 What Type Of Diet Are You Following? VEGETARIAN [email or web address] Information not available 08/06/2013 Which Illicit Or Recreational Drugs Have You Used? None Information not available 03/25/2020 Do You Or Have You Ever Used E-cigarettes Or Vape? Never Used Electronic Cigarettes Information not available 03/25/2020 Education 4 Year College [email or web address] Informatio n not available 10/06/2022 What Is The Highest Grade Or Level Of School You Have Completed Or The Highest Degree You Have Received? 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 Yes Retired Information not available 04/03/2023 How Many Days In The Past Year Have You Had A Heavy Drinking Consumption (4+ Female, 5+ Male)? 0 Information not available 01/29/2016 Are There Any Guns Present In Your Home? No [email or web address] Information not available 08/24/2011 Do You Use Insect Repellent Routinely? Yes [email or web address] Information not available 03/31/2022 Live Alone Or With Others? With Others [email or web address] Information not available 10/06/2022 Patient Has Health Care Proxy Signed And In Chart Yes Information not available 04/17/2023 CCM Consent Discussion 10/06/2022 Information not available 10/11/2022 Marital Status [email or web address] Informatio n not available 10/06/2022 Mosquito Repellent Used Routinely Yes [email or web address] Information not available 10/06/2022 What Was The Date Of Your Most Recent Tobacco Screening? 04/14/2024 [email or web address] Information not available 04/14/2024 How Many Children Do You Have? 3 Information not available 03/25/2020 What Is Your Current Pack Years? [email or web address] Information not available 01/29/2016 What Is Your Relationship Status? [email or web address] Information not available 03/31/2022 Do You Use Your Seat Belt Or Car Seat Routinely? Yes [email or web address] Information not available 03/31/2022 Seat Belts Used Routinely Yes [email or web address] Information not available 10/06/2022 Are You Sexually Active? Yes [email or web address] Information not available 03/31/2022 Smoke Alarm In Home Yes [email or web address] Information not available 10/06/2022 Do You Have Smoke And Carbon Monoxide Detectors In Your Home? Yes [email or web address] Information not available 03/31/2022 Are You Passively Exposed To Smoke? No [email or web address] Information not available 03/31/2022 Do You Or Have You Ever Used Smokeless Tobacco? Never Used Smokeless Tobacco Information not available 03/25/2020 How Much Tobacco Do You Smoke? No Information not available 03/25/2020 What Types Of Sporting Activities Do You Participate In? None Information not available 02/11/2018 General Stress Level Medium [email or web address] Information not available 10/06/2022 Do You Use Any Illicit Or Recreational Drugs? No Information not available 03/31/2022 Do You Use Sunscreen Routinely? Yes [email or web address] Information not available 08/24/2011 Do You Or Have You Ever Used Any Other Forms Of Tobacco Or Nicotine? No [email or web address] Information not available 10/06/2022 Sex: Female Functional Status Question Answer Note LastModified by Organization D etails LastModified Time What is your exercise level? Moderate [email or web address] Information not available 03/31/2022 Mental Status None recorded. Family History Relationship Description Onset Age of this Age Resolved Age Notes LastModified by Organization Details LastModified Time Mother Problem 81 renal failur e/ bowel obstru ction [email or web address] Not available 10/06/2022 08:27:40 Father Malignant tumor of prostate 87 previo usly record ed as Cancer - Prosta te Not available 01/29/2016 09:28:46 Medical History Condition Response Coronary Artery Disease N Gout N Macular Degeneration N Atrial Fibrillation N Kidney Stones N Erectile Dysfunction N Menopausal Symptoms N Depression N COPD N Incontinence N Cerebral Vascular Accident N MUSCULOSKELETAL N ENDOCRINE N Migraine Headaches N Congestive Heart Failure N RESPIRATORY N Alcoholism N Obesity Y Diverticulosis N acne N Stroke N OTHER N Crohn's Disease N HIV/AIDS N GERD N CARDIOVASCULAR N Skin Cancer N Skin Disease N Rheumatoid Arthritis N Fibromyalgia N Chronic Vaginitis N Irritable Bowel Syndrome N Kidney Disease N Spondylitis N Anxiety N GASTROINTESTINAL N SKIN N Peptic Ulcer Disease N Constipation N RHEUMATOLOGIC N Osteopenia N Rheumatic Fever N Cataracts N Bleeding Disorder N Tuberculosis N HEMATOLOGIC N Myocardial Infarction N Allergic Rhinitis N Allergies N Asthma N Polycystic Ovary Syndrome N Diabetes Type II N Substance Abuse N Seizures N Peripheral Vascular Disease N Rheumatic Heart Disease N Abnormal Pap N Diabetes Type I N Thyroid Disease N Leukemia N Colon Cancer N Breast Cancer N INFECTIOUS DISEASE N Lung Cancer N Alzheimers Dementia N Glaucoma N Hyperthyroid N Pacemaker N Atrophic Vaginitis N PSYCHIATRIC N Interstitial Lung Disease N Deep Vein Thrombosis N Psychiatric Disorders N Venous Insuffiency N Hearing Loss N rosacea N Systemic Lupus E N EYE N Heart Valve Replacement N eczema N Benign Prostatic Hypertrophy N Hyperparathyroid N CANCER N Schizophrenia N Suicide Attempt N Pulmonary Embolus N Chronic Cough N Osteoarthritis N NEUROLOGIC N Parkinson's Disease N Lyme Disease N Chronic Neck Pain N Prostate Cancer N ENT N Transient Ischemic Attack N Hepatitis C N Anemia N Colon Polyps N Hypothyroid N RENAL / GENITOURINARY N Hyperlipidemia Y Valvular Heart Disease N Diverticulitis N METABOLIC N psoriasis N Hepatitis B N Chronic Back Pain N Bipolar Disorder N Ulcerative Colitis N Sleep Apnea N Heart Disease N Hypertension N Osteoporosis N Gynecological History Statement/Question Response Date of LMP 10/08/1999 Obstetrics History GPAL:G 0 P 0 0 0 0 Immunizations Vaccine Type Date Status Note Provider Nam e and Address Organization Details Recorded Time influenza, unspecified formulation 5 completed Not Available [facility] 08/23/2011 05:21:29 Td(adult) unspecified formulation 3 completed Not Available [facility] 08/23/2011 05:22:41 Tdap 3 completed Not Available [facility] 10/25/2019 02:16:07 Influenza, split virus, trivalent, PF 3 completed Not Available [facility] 10/25/2019 02:34:58 zoster live 1 completed Tequila Carey MA [facility] 08/11/2013 09:02:41 Influenza, split virus, trivalent, preservative 4 completed Not Available [facility] 10/06/2022 08:27:43 Influenza, split virus, quadrivalent, preservative 6 completed Not Available [facility] 10/06/2022 08:27:43 Influenza, split virus, quadrivalent, preservative 7 completed Not Available [facility] 10/06/2022 08:27:43 Influenza, split virus, quadrivalent, preservative 8 completed Not Available [facility] 10/06/2022 08:27:43 Influenza, high-dose, quadrivalent, PF 0 completed Zoe Garcia RN null, [facility] 07/24/2020 09:40:21 Influenza, high-dose, quadrivalent, PF 1 completed Tanja South LPN null, [facility] 08/18/2021 09:07:53 pneumococcal polysaccharide PPV23 1 completed Tanja South LPN null, [facility] 08/18/2021 09:07:53 Influenza, high-dose, quadrivalent, PF 2 completed Damaris Uribe [address], [address], [facility] 08/11/2022 13:14:27 COVID-19, mRNA, LNP-S, PF, 100 mcg/0.5mL dose or 50 mcg/0.25mL dose 1 completed Not Available [facility] 10/06/2022 08:27:43 COVID-19, mRNA, LNP-S, PF, 100 mcg/0.5mL dose or 50 mcg/0.25mL dose 1 completed Not Available [facility] 10/06/2022 08:27:43 Td (adult), 2 Lf tetanus toxoid, preservative free, adsorbed 4 completed GERMAINE Greer, [facility], [address], [facility] 01/14/2024 10:30:51 Influenza, high-dose, trivalent, PF 4 completed Juanis Levy MA null, [facility] 07/24/2024 09:03:56 COVID-19, mRNA, LNP-S, PF, 100 mcg/0.5mL dose or 50 mcg/0.25mL dose 1 completed Not Available [facility] 10/06/2022 08:27:43 Influenza, high-dose, quadrivalent, PF 1 completed Not Available [facility] 10/06/2022 08:27:43 COVID-19, mRNA, LNP-S, PF, 100 mcg/0.5mL dose or 50 mcg/0.25mL dose 2 completed Not Available [facility] 10/06/2022 08:27:43 zoster recombinant 2 completed Not Available [facility] 10/06/2022 08:27:43 zoster recombinant 2 completed Not Available [facility] 10/06/2022 08:27:43 influenza, unspecified formulation 3 completed Tanja South LPN [facility] 07/06/2023 17:26:32 Past Encounters Encounter ID Performer Location Encounter Start Date Encounter Closed Date Diagnosis/Indication Diagnosis SNOMED-CT Code Diagnosis ICD10 Code Diagnosis Note [id number] [facility], OFFICE [address] [place] [address] 03/26/2001 16:15:00 10/28/2008 02:02:29 [id number] [facility], OFFICE [address] [place] [address] 03/11/2001 09:45:00 10/28/2008 02:02:29 [id number] [facility], OFFICE [address] [place] [address] 07/05/2001 14:00:00 10/28/2008 02:02:29 [id number] [facility], [address]ICE [address] [place] [address] 10/24/2001 07:45:00 10/28/2008 02:02:29 [id number] [facility], [address] [place] [address] 07/11/2002 11:27:44 10/28/2008 02:02:29 [id number] [facility] - [facility] [address] [place] [address] 02/19/2003 10:42:22 10/28/2008 02:02:29 [id number] [facility], OFFICE [address] [place] [address] 02/19/2003 09:32:30 10/28/2008 02:02:29 [id number] [facility], [address]ICE [address] [place] [address] 2003 09:42:25 10/28/2008 02:02:29 [id number] [facility], OFFICE [address] [place] 07/17/2003 08:33:01 07/17/2003 15:34:16 [id number] Radiology , [facility] [address] [place] [address] 07/17/2003 09:30:23 07/17/2003 12:04:53 [id number] LAB - [facility] [address] [facility] [place] [address] 07/20/2003 09:15:33 07/20/2003 13:19:19 [id number] Radiology , [facility] [address] [facility] [place] [address] 08/28/2003 11:04:19 10/28/2008 02:02:29 [id number] [facility], OFFICE [address] [place] [address] 10/09/2003 08:08:16 10/09/2003 12:53:27 [id number] [facility], OFFICE [address] [place] [address] 11/24/2003 16:51:06 11/24/2003 18:06:12 [id number] Radiology , [facility] [address] [facility] [place] [address] 11/26/2003 15:24:35 10/28/2008 02:02:29 [id number] Radiology , [facility] [address] [facility] [place] [address] 08/12/2004 08:30:22 08/13/2004 14:06:59 [id number] [facility], OFFICE [address] [place] [address] 08/12/2004 08:03:48 08/12/2004 12:55:33 [id number] [facility], OFFICE [address] [place] [address] 09/02/2004 13:08:19 09/03/2004 11:17:38 [id number] LAB - [address] [place] [address] 11/17/2004 08:26:30 11/17/2004 08:29:00 [id number] Radiology , [facility] [address] [facility] [place] [address] 12/16/2004 09:26:27 12/19/2004 08:27:38 [id number] [facility], OFFICE [address] [place] [address] 08/28/2005 11:24:01 10/28/2008 02:02:29 [id number] [facility], OFFICE [address] [place] [address] 09/08/2005 10:07:25 10/28/2008 02:02:29 [id number] LAB - [facility] [address] [place] [address] 09/08/2005 10:55:00 09/08/2005 10:55:18 [id number] Radiology , [facility] [address] [place] [address] 01/19/2006 11:11:46 01/20/2006 10:59:36 [id number] [facility], OFFICE [address] [place] [address] 11/08/2006 16:29:47 11/09/2006 16:55:04 [id number] Eye Care, [address] [address] 01/07/2007 15:51:03 01/08/2007 09:43:04 [id number] Radiology , [facility] [address] [place] [address] 02/02/2007 11:38:23 02/06/2007 11:58:44 [id number] [facility], OFFICE [address] [place] [address] 05/31/2007 15:00:36 10/28/2008 02:02:29 [id number] LAB - [facility] [address] [place] [address] 06/04/2007 08:16:18 06/04/2007 08:16:26 [id number] Optical, [facility] [address] [place] [address] 09/11/2007 10:57:26 09/11/2007 16:44:12 [id number] [facility], OFFICE [address] [place] [address] 01/17/2008 08:20:39 10/28/2008 02:02:29 [id number] Radiology , [facility] [address] [place] [address] 01/17/2008 08:03:42 01/20/2008 09:26:54 [id number] Radiology , [facility] [address] [place] [address] 03/23/2008 08:29:52 03/24/2008 09:12:05 [id number] [facility], OFFICE [address] ROSARIO146 6 05/05/2008 09:05:38 10/28/2008 02:02:29 [id number] Radiology , [facility] HARI Adler146 6 05/05/2008 09:37:17 05/06/2008 09:15:23 [id number] Physical Therapy, [facility] Nat[facility] HARI Martin[address] 6 05/19/2008 16:39:21 05/20/2008 08:32:[id number] [facility], [facility] Nat[facility] HARI Martin[address] 6 06/11/2008 16:03:11 06/12/2008 08:48:08 [id number] LAB - [facility] HARI Adler62[address] 6 09/11/2008 08:51:56 09/11/2008 08:52:00 [id number] Physical Therapy, [address] HARI Martin[address] 12/17/2008 16:25:30 12/18/2008 08:04:51 [id number] Radiology [address] HARI Martin62[address] 6 03/11/2009 16:33:21 03/16/2009 13:35:43 [id number] [facility], OFFICE [address] [place] ROS[place]62[address] 6 04/27/2009 08:29:43 04/30/2009 14:49:35 [id number] Radiology , [address] HARI Martin62[address] 6 06/04/2009 08:02:50 06/09/2009 15:06:39 [id number] Eye Care, [facility] HARI Martin62[address] 6 01/28/2009 08:44:46 01/28/2009 09:25:46 [id number] Eye Care, [facility] Nat[facility] HARI Martin62[address] 6 02/08/2009 16:22:54 02/08/2009 16:40:41 [id number] Optical, [facility] Nat[facility] HARI Martin62[address] 6 03/11/2009 17:49:06 03/12/2009 08:56:22 [id number] LAB - [facility] [address] [place] [address] 04/29/2009 08:51:22 04/29/2009 08:51:29 [id number] Optical, [facility] [address] [place] [address] 07/23/2009 13:15:34 07/26/2009 15:17:13 [id number] [facility], OFFICE [address] [place] [address] 02/21/2010 16:33:47 02/22/2010 12:22:47 [id number] [facility] [address] [place] [address] 04/20/2010 16:36:03 04/21/2010 13:15:35 [id number] [facility], OFFICE [address] [place] [address] 08/01/2010 16:09:33 08/03/2010 10:51:[id number] [address] 08/11/2010 08:55:58 08/16/2010 11:37:14 [id number] [facility] [address] [place] [address] 05/03/2011 16:19:13 05/04/2011 15:49:36 [id number] [facility], OFFICE [address] [place] [address] 08/09/2011 14:47:36 08/10/2011 14:48:46 [id number] [facility], OFFICE [address] [place] [address] 11/20/2011 14:43:54 11/20/2011 15:40:58 [id number] [facility] [address] [place] [address] 05/07/2012 09:54:56 05/08/2012 09:44:07 [id number] Lucy Lilly [facility], OFFICE [address] [place] [address] 08/06/2013 15:35:42 08/12/2013 14:17:32 Adult health examination [id number] see Risk Assessment and Lifestyle Change Counseling section above 60 yo F seen for PHA, discussed food choies, portion control & exercise, due for labs in 2013, Pap UTD, Mammogram UTD & colonoscop y UTD. Return in 1 y or sooner prn Administra tion of diphtheria, pertussis, and tetanus vaccine [id number] Influenza vaccine needed [id number] Mariaelena Yates LPN , [facility], [address] [place] [address] 09/29/2013 15:32:18 09/29/2013 16:16:14 Perioral dermatitis [id number] , [facility], OFFICE [address] [place] [address] 11/10/2014 10:39:34 11/10/2014 11:50:20 Adult health examination [id number] see Risk Assessment and Lifestyle Change Counseling section above 59-year-ol d female is seen for annual physical exam, pelvic with Pap smear done, needs mammogram, labs ordered, colonoscop y is up-to-date , healthcare maintenanc e needs discussed. Counseling [id number] Screening for malignant neoplasm of cervix [id number] Aury Roberts, OD Eye Care, [facility] [address] [place] [address] 01/20/2016 14:53:58 01/20/2016 15:57:54 Astigmatism [id number] H52.203 glasses rx given Posterior vitreous detachment 079295834 H43.811 reviewed s/s rd rtc if occur. otherwise rtc 1-2 years CEE [id number] SAMUEL Kuhn , [facility], [address] [place] [address] 01/26/2016 11:50:51 01/26/2016 12:37:18 Mixed hyperlipidemia 487656502 E78.2 Cholestero l is at goal Continue to work on diet and exercise as discussed Adult heal th examination 409873750 Z00.00 see Risk Assessment and Lifestyle Change Counseling section above 60-year-ol d female is seen for annual physical exam, mammogram is UTD, labs viewed & discussed, colonoscop y is up-to-date , healthcare maintenanc e needs discussed. Counseling 022148760 Z71 .9 [id number] SAMUEL Kuhn , [facility], [address] [place] [address] 10/26/2016 07:41:02 10/26/2016 08:32:34 Ganglion cyst 11745926 M67.40 R thumb, proximal joint area, seen & examined w/HS, no further treatment required unless it becomes painful or interferes in function. Pt. agrees. Mixed hyperlipidemia 267 016228 E78.2 Cholestero l is at goal Continue to work on diet and exercise as discussed [id number] Sona Mijares NP , [facility], [address] [place] [address] 02/08/2017 16:28:49 02/08/2017 17:26:00 Adult health examination 606830259 Z00.00 61 year old here for routine PHA. QM up to date. See Risk Assessment and Lifestyle Change Counseling section above. Screening for malignant neoplasm of colon 396865901 Z12.11 Referral for a DIRECT booked colonoscop y. This patient is a healthy ASA Class 1 or 2 patient (only mild systemic disease), or a STABLE, well controlled insulin dependent diabetic. They do not have serious cardiac disease ie [place]/angiopl asty within 1 year, symptomati c CHF; renal failure with CKD 4 or 5; take Coumadin, Plavix, Aggrenox, etc. [id number] Germaine Rehman MD [facility], [address] [address] 09/10/2017 07:35:56 09/10/2017 12:59:52 [id number] SAMUEL Kuhn, [facility], [address] [place] [address] 11/05/2017 16:00:05 11/05/2017 17:12:11 Acute left otitis media 223376933 H66.92 [id number] SAMUEL Kuhn, [facility], [address] [place] [address] 02/11/2018 14:47:19 02/11/2018 15:33:21 Adult health examination 366249467 Z00.00 see Risk Assessment and Lifestyle Change Counseling section above62 yo F seen for PHA, labs reviewed & discussed, mammogram ordered, colonoscop y is UTD, HCM needs discussed. Depression screening 171 214237 Z13.89 depression screening tool administer ed, entered into emr, scored and discussed, time greater than 7.5 minutes Screening mammography 24 285533 Z12.31 [id number] Aury Roberts, OD Eye Care, [facility] [address] [place] [address] 04/03/2018 08:24:22 04/03/2018 09:22:13 Astigmatism 82543094 H52.203 minimal changes OU, changing glasses optional. Posterior vitreous detachment 984607121 H43.811 longstandi ng, stable, not discussed today. observe. Nuclear se nile cataract 552253864 H25.13 mild OU, not visually significan t and not affecting ADL's, pt. ed, monitor 1 year or sooner with changes in vision. [id number] Germaine Torres MD FP, [facility], [address] [place] [address] 04/11/2018 12:10:56 04/11/2018 14:08:08 Laceration of finger 342993002 S61.219A Applied steristrip s and bandaid. NO signs of infection. [id number] Irena Colon PA-C , [facility], [address] [place] [address] 03/21/2019 08:29:17 03/21/2019 09:10:45 Adult health examination 298163216 Z00.00 See risk assessment Healthy 64 yo F - RTC for [place] in 12 months. Counseling 229704467 Z71 .9 Depression screening 171 842319 Z13.89 depression screening tool administer ed, entered into emr, scored and discussed, time greater than 7.5 minutes Eruption 848770759 R21 Small, mildly erythemato us patch under left nare and over left lip.Has been using 's triamcinol one with good effect. Will give rx. Rtc for worsening sx. [id number] Aury Roberts, OD Eye Care, [facility] [address] [place] [address] 03/27/2019 14:03:45 04/16/2019 15:45:05 Macular drusen 386145001 H35.361 pt ed, baseline photo/OCT today. recommend UV protection , discussed lutein and green leafy veggies, former smoker. f/u 1 yr CEE/OCT/Ph kaye. Astigmatism 96552819 H52 .203 minimal changes OD, changing glasses optional. Posterior vitreous detachment 169847970 H43.811 longstandi ng, stable, not discussed today. observe. Nuclear se nile cataract 621055428 H25.13 mild OU, not visually significan t and not affecting ADL's, pt. ed, monitor 1 year or sooner with changes in vision. [id number] SAMUEL Kuhn , [facility], [address] [place] [address] 03/25/2020 09:34:53 03/29/2020 09:49:44 Adult health examination 461119275 Z00.00 See risk assessment Healthy 65 yo F - labs & mammogram ordered, HCM needs discussed. RTC for [place] in 12 months. Counseling 905595834 Z71 .9 including cardiovasc ular risk reduction counseling Depression screening 171 470322 Z13.89 depression screening tool administer ed, entered into emr, scored and discussed, time greater than 7.5 minutes Screening for alcohol abuse 789001488 Z13.39 Screening mammography 24 310626 Z12.31 Active or passive immunization 965740022 Z23 Motion sickness 80672714 T75.3XXA Postmenopausal state 764 51179 Z78.0 [id number] Zoe Garcia RN , [facility], [address] [place] [address] 07/24/2020 07:37:40 07/26/2020 12:49:10 Active or passive immunization 561682929 Z23 [id number] SAMUEL Kuhn , [facility], [address] [place] [address] 02/07/2021 08:14:10 02/07/2021 09:11:11 Screening mammography 10202508 Z12.31 Vertigo 432310644 R42 Meclizine ordered as written below, referral to PT, advised to move Nausea 098091557 R11.0 Nausea associated w/vertigo. Zofran ordereed as written above Impacted cerumen 3948700 6 H61.20 R ear successful ly cleared of cerumen. Advised to use Debrox gtts. to keep ears patent. [id number] Lynette Clay, PT Physical Therapy, [facility] [address] [place] [address] 02/10/2021 14:16:44 02/10/2021 17:38:39 Vertigo 246798417 R42 Patient is a 65-year old {{female* male}} who presents to physical therapy with c/o vertigo x 1 week. Physical examinatio n revealed mild increase in nausea during vertical saccades with involuntar y eye movements, and upward beating torsional nystagmus during R-sided [place]an[place]-Hallpi ke, which resolved in14 sec. 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 Patient has {{signific ant* moder ate mild}} functional limitation in their {{activiti es of daily living act ivities of daily living and work capacity a ctivities of daily living and exercise capacity* activities of daily living and recreation }}. {{His Her* Their}} primary limitation s are with lying flat, lying on her right side, and turning her head to the right. Skilled physical therapy is indicated to safely and progressiv ross address impairment s and functional limitation s as outlined below. Patient is a {{good* fa ir poor}} candidate for physical therapy due to active lifestyle, good support system, and motivation to actively participat e in {{his her* their}} plan of care. Patient Goals: 1. No more dizziness. Clinical Goals: In 2-4 weeks, patient will: 1. Report 90-100% symptom resolution . 2. Demonstrat e independen ce with HEP for canalith reposition ing maneuvers, and self care techniques to decrease risk of recurrent symptoms. Treatment Plan: Patient to return for {{4 6 8 10 *}} visits over {{4 8 12*} } weeks. We expect significan t change in pain, impairment and function in this time frame. Treatment to Include: Continuing assessment , therapeuti c exercise, patient education, HEP (initiated ), manual therapy PRN, modalities PRN. [id number] EKATERINA Greenberg, [facility], [address] [place] [address] 02/17/2021 14:14:13 02/17/2021 14:43:25 Positional vertigo 031488055 H81.13 Advised ample rest and hydration and taking a break from Basil maneuver. COntinue Dramamine prn. F/U in 1 week. [id number] EKATERINA Greenberg, [facility], [address] [place] [address] 02/24/2021 14:26:00 02/28/2021 13:48:11 Positional vertigo 810659703 H81.13 Room spinning episodes persisting . SOme relief with dramamine, Advised ample rest and hydration. Dramamine at night for 3-4 days. Will send ENT referral. [id number] Sadi Cedeño CMA , [facility], [address] [place] [address] 03/29/2021 14:37:14 03/31/2021 10:04:50 Adult health examination 211685782 Z00.00 See risk assessment Healthy 64 yo F - RTC for [place] in 12 months. Counseling 465808994 Z71 .9 including cardiovasc ular risk reduction counseling Depression screening 171 581495 Z13.31 depression screening tool administer ed, entered into emr, scored and discussed, time greater than 7.5 minutes Screening for alcohol abuse 107103459 Z13.39 see audit C. Benign par oxysmal positional vertigo 446276842 H81.13 Tried PT with little effect. Takes Dramamine for flares. Has appt with ENT in May.Katrin chun send vestibular referral today. Pain in throat 599624229 R07.0 QS - Will send cx. Enc. advil/tyle nol prn, warm saltwater gargles, adequate fluid intake. F/U if sx worsening, fever/chil ls, unable to keep down fluids or other worrisome sx. [id number] Tanja South LPN , [facility], [address] [place] [address] 08/18/2021 08:26:17 08/29/2021 14:37:26 Active or passive immunization 607460818 Z23 [id number] Irena Colon PA-C , [facility], [address] [place] [address] 09/08/2021 08:23:58 09/08/2021 09:04:56 Recurrent herpes simplex 25752463 B00.9 WIll rx antiviral for first sign of flare. Sore throat 238599162 J0 2.9 Spent time with grandchild who goes to daycare. No other symptoms. Requesting COvid test today. Vestibular neuronitis of right inner ear 7354853742 778933 H81.21 Much iproved with vestibular therapy with Coco Wilson. [id number] Irena Colon PA-C , [facility], [address] [place] [address] 01/28/2022 09:27:13 01/28/2022 10:16:44 Muscle strain 73112445 T14.8XXA right mid-back. Reassuranc e given. Advised gentle stretching . [id number] Irena Colon PA-C , [facility], [address] [place] [address] 03/31/2022 08:10:06 03/31/2022 08:55:55 Adult health examination 783517336 Z00.00 see risk assessment Depression screening 171 Z13.31 depression screening tool administer ed, entered into emr, scored and discussed, time greater than 7.5 minutes Counseling 842074471 Z71 .89 including cardiovasc ular risk reduction counseling [id number] SAMUEL Cisse , [facility], [address] [place] [address] 08/11/2022 09:14:48 08/11/2022 15:56:33 Active or passive immunization 380713917 Z23 [id number] Nallely Griggs MD , [facility], [address] [place] [address] 10/06/2022 08:27:38 10/06/2022 11:05:49 Motion sickness 78338743 T75.3XXA discussed patch vs OTC medspt has had good luck with OTC, works well, helps her napfor short flight, would recommend use samept agrees with plan [id number] Darshan Linton MD , [facility], [address] [place] [address] 02/01/2023 09:40:55 02/01/2023 10:22:01 Chronic neck pain 0148894216 107 M54.2 [id number] SAMUEL Cisse , [facility], [address] [place] [address] 04/03/2023 09:26:02 04/03/2023 10:24:27 Adult health examination 897930516 Z00.00 Depression screening 171 Z13.31 depression screening tool administer ed Screening for alcohol abuse 163959839 Z13.39 Alcohol use screening tool administer ed Screening mammography 24 055010 Z12.31 Vestibular neuronitis of right inner ear 5159569740 840538 H81.21 Vertigo 592203611 R42 vertigo, nausea, photophobi a, vestibular migraines - will refer to Dr. Modesto Leavitt for neurology consult. In care w/ ENT, Dr. Hood and has completed vestibular PT. Chronic neck pain 032971 3875 107 M54.2 [id number] SAMUEL HAILE-JOSE ALEJANDRO FP, [facility], [address] [place] [address] 01/14/2024 09:46:07 01/14/2024 10:29:52 Osteoarthritis of right hip joint 8956679135 68285 M16.11 Suspect right hip OA Will refer to PT and get x-ray to establish baseline Active or passive immunization 302582143 Z23 Updated [id number] Keila Hearn NP , [facility], [address] [place] [address] 01/23/2024 08:41:28 01/23/2024 09:31:11 Astigmatism 65223579 H52.203 Followed by ophthalmol ogist Dry eyes 943270645 H04.1 23 No longer an issue, per Manuela - moved to historical problem list. Vestibular neuronitis of right inner ear 5101872149 497331 H81.21 Chronic, followed by specialist . Patient ne w to provider 9243987024 20479 Z76.89 Reviewed current medical concerns, previous medical history, family health history. Pain in ri ght hip joint 8621298149 63527 M25.551 Reviewed Xray - no arthritis, starting PT this week. [id number] GOMEZ MORRELL, PT, DPT Physical Therapy, [facility] [address] [place] [address] 04/04/2024 08:56:43 04/04/2024 11:01:02 Pain in right hip joint 4037508670 88097 M25.849 [id number] GOMEZ MORRELL, PT, DPT Physical Therapy, [facility] [address] [place] [address] 04/11/2024 09:00:29 04/11/2024 10:50:36 Pain in right hip joint 0034482745 44100 M25.491 [id number] Keila Hearn NP FP, [facility], [address] [place] [address] 04/14/2024 08:41:55 04/14/2024 09:38:36 Basal cell carcinoma of skin 651998455 C44.91 Followed by BRUNO Hodge for removal of stitches todayCont to f/u with Dr. Ware Adult heal th examination 274360578 Z00.00 69 yr old female in overall good health seen today for annual wellness.D iscussed current health concerns, reviewed screening recommenda tions, discussed diet, exercise, ETOH, and cardiac health as well as health goals for the coming year.SCREE NINGS: SEE ABOVE Depression screening 171 013327 Z13.31 depression screening tool administer edPHQ-9 REFUSED Screening for alcohol abuse 445336245 Z13.39 Alcohol use screening tool administer edAUDIT-C: REFUSED Counseled by member of primary health care team 079218888 Z71.9 Today we discussed ways to reduce your 10-year cardiovasc ular disease risk. Things that decrease risk for cardiovasc ular events include eating a diet high in fiber (fruits and vegetables ) and low in simple carbohydra brandi (bread, rice, pasta, alcohol, potatoes), decreasing processed foods, limiting juice and alcohol, limiting saturated fats (butter, ice cream, and cheeses), and adding regular daily activity. Having blood pressure that is <130/80. Having well controlled cholestero l (LDL and triglyceri libertad) by eating a healthy diet and taking medication s when necessary. Managing daily stress with meditation or yoga. Depending on your other cardiovasc ular risks your practition er may recommend taking daily aspirin. CVD 7.9% Astigmatism 83894068 H52 .203 Followed by ophthalmol ogist Osteoporosis 96928535 M8 1.0 Reviewed bone density - note worsening of R femur headWill cont w lifestyle, calcium 1200mg daily (or supplement ation of no more than 500mg daily) and Vit DAdd weight bearing exercise.W ill consider bisphospho nates and discuss next year. Recurrent herpes simplex 22914360 B00.9 Refill valacyclov ir [id number] GOMEZ MORRELL, PT, DPT Physical Therapy, [facility] [address] [place] [address] 04/25/2024 11:26:06 04/25/2024 14:50:14 Pain in right hip joint 6598164636 14278 M25.551 [id number] GOMEZ MORRELL, PT, DPT Physical Therapy, [facility] [address] [place] [address] 05/16/2024 12:00:24 05/16/2024 14:39:06 Pain in right hip joint 2547725427 90442 M25.551 [id number] Juanis Levy MA , [facility], [address] [place] [address] 07/24/2024 07:35:51 07/25/2024 11:43:24 Active or passive immunization 286241095 Z23 Health Concerns Section Related Observation LastModified by Organization Detai ls LastModified Time None Recorded Concern Status LastModified by Organization Details LastModified Time None Recorded Advance Directives Directive N: Payers Encounter Date Sequence Insurance Name Policy Number Policy Duncan Covered Member ID Duncan Member ID Guarantor Name 04/11/2024 1 [employer] PLAN (MEDICARE REPLACEMENT HMO) [id number] 2 Manuela Flemingon [id number] Manuela Sidhu 04/14/2024 1 [employer]AGE PLAN (MEDICARE REPLACEMENT HMO) [id number] 2 Manuela Didi Tolbert Nahum [id number] Manuela Flemingon 04/25/2024 1 [employer]AGE PLAN (MEDICARE REPLACEMENT HMO) [id number] 2 Manuela Flemingon [id number] Manuela Didi Flemingon 05/16/2024 1 [employer]AGE PLAN (MEDICARE REPLACEMENT HMO) [id number] 2 Manuela Tolbert Nahum [id number] Manuela Didi Flemingon 07/24/2024 1 [employer]AN (MEDICARE REPLACEMENT HMO) [id number] 2 Manuela Didi Tolbert Nahum [id number] Manuela Didi Sidhu Notes Date Note Type Note Provider Name and Address Organization Details Recorded Time text/html PT Initial Eval*Reported bypatient.Prior Studies:x ray; 01/29 No acute bone abnormality. Associated Symptoms:dizziness;lighth eadedness; no nausea; no vomiting; no fever; no chills; no excessive fatigue; no confusion; no forgetfulness; no change in weight; no numbness; no tingling; no changes in urinary habits; no changes in bowel habits; no loss of pleasure or interest in activities; no feeling down or depressed; NOTES vertigo symptoms with positional changesPT Daily Progress NoteReported bypatient.Notes:Doing well overall. No pain with the exercises. Patient Specific Functional Score:left incomplete Pt referred to PT by {{PCP family med#}} regarding posterior R hip pain for the last 6-9 mo. Sometimes it radiates into her R anterior thigh but that pain doesn't last very long. Sometimes she has no pain, intensity up to 3-4/10. Feels worse after going on a long walk. Used to walk 4 miles with friends but now can't tolerate it. She finds herself limping afterwards. Tolerating 1-2 miles right now. Doesn't tolerate sitting, car rides very well. Wakes up with pain when she sleeps on her R side. Went to one session at [facility] for PT and didn't like it. Functional Limitations: bed mobility, sitting and walking tolerance Stated Goals: unlimited walking and sitting tolerance. GOMEZ MORRELL, PT, DPT [address] [place] [address], [phone], [facility] [place] 09:29:01 4 text/html Physical Exam/FemaleReported bypatient.PHAPatient is here for a Wellness Visit. She describes her health status as good. Patient's health is the same as last year.Risk Assessment and Lifestyle Change Counseling (Medicare)Reported bypatient.Coronary Artery Disease Risk Assessment:No Family history of coronary artery disease; No personal history of diabetes; No history of peripheral vascular disease, AAA, or carotid disease; No personal history of coronary artery disease; Rougon 10 year risk Breast Cancer Risk Assessment:No family history of breast cancer; No history of breast cancer or dcis Colon Cancer Risk Assessment:No family history of pre cancerous colon polyps or cancer Lung Cancer Risk Assessment:Never smoked; No asbestos exposure Fracture Risk Assessment:No unexplained fracture; No use of corticosteroids; No anti-seizure medication; Normal bone density; Has adequate calcium intake; Taking Vitamin D supplement; No chronic use of proton pump inhibitors Cognitive/Behavioral Risk Assessment:No personal history of mental illness; No family history of mental illness Safety Risk Assessment:Has grab bars in bathroom; Has rails on steps; No falls; No evidence of abuse/neglect; Do you feel safe in your current relationship? Functional Status:Patient does not have trouble hearing the television or radio when others do not.; Patient does not have to strain or struggle to hear/understand conversations; Patient does not need help with preparing meals, transportation, shopping, taking medicine, managing finances, or other activities of daily living.; Patient does not have visual loss that interferes with daily activities; Does not live alone; Patient was not unsteady and did not take longer than 30 seconds during the timed get up and go test.; Patient reports no falls in the past 6 months. Diet:Counseled about appropriate portion size; Counseled about eating a diet low in trans and saturated fats and high in fiber, fruits and vegetables Exercise counseling:Discussed the importance of daily physical activity Safety:Counseled about protecting skin from the sun and lowering the risk of skin cancer; Counseled about avoiding excessive and unsafe alcohol intake; Counseled about safer sexual practice; Counseled about use of helmets for high velocity activiities; Counseled about home safety including use of smoke detectors, CO detectors, keeping home water temperature less than 120; Counseled about use of seat belts; Counseled about fall risk from throw rugs and the need for hand rails on steps and in bathSocial DeterminantsReported bypatient.Living situationsteady place to live Living situation...do you have problems with the following:none of the above In the past 12 months, have you worried your food would run out before you had money to buy more?never true Within the past 12 months, the food just didn't last and you didn't have money to get more.never true Has lack of transportation kept you from medical appointments, meetings, work, etc?no In the past 12 months has the electric, gas, [employer] or water company threatened to shut off services?no How hard is it for you to pay the very basics like food, house, medical care and housing?not hard at all 69 y/o F here for wellness visit MAMMO 06/2021, DUEPAP - LAST 2014-nl pap, rpt in 3 years. Pap review, nl paps 11/14, 04/15 and 11/2011; NO LONGER DUEBONE DENSITY: 2020 OSTEOPOROSIS, right femoral neck T-score = -2.5; Total Hip T-score = -2.3.COLONOSCOPY 2017 - 10 YR F/UASCVD RISK 7.9 Pt declined PHQ/screen due to cost. I'm fine . Basal cell - MOHS on L side of nose - followed by Dr. Suero to have stitches removed today Vestibular neurotinitis - has f/u with neurologist - MRI possible if Medicare approves, [place] Simon MERCHANDISE DELIVERER for Dr. StarkaVeraldo - manageable. Herpes - intermittent outbreaks.Willard well on cyclovir Doing PT with Se[facility] - SI joint pain.Wants to consider bisphosphonates for future. Some heartburn, tightness in chest - not worried - but surprising. PREV WELLNESS Medicare Wellness. Mammo, Td vac. New onset of vertigoSaw Dr. Hood - saw Александр Whittaker f/u in JuneSuspected vestibular issue.Went to vestibular PT for a year.Avoid fermenting foods, being more mindful about movement. Keila Hearn NP [address] [place] [address], [phone], [facility] [place] 14:30:23 4 text/html PT Initial Eval*Reported bypatient.Prior Studies:x ray; 01/29 No acute bone abnormality. Associated Symptoms:dizziness;lighth eadedness; no nausea; no vomiting; no fever; no chills; no excessive fatigue; no confusion; no forgetfulness; no change in weight; no numbness; no tingling; no changes in urinary habits; no changes in bowel habits; no loss of pleasure or interest in activities; no feeling down or depressed; NOTES vertigo symptoms with positional changesPT Daily Progress NoteReported bypatient.Notes:She is doing well. She travelled without too much issue. She feels like the exercises have been helpful. She able to do planks now on the floor. Patient Specific Functional Score:left incomplete Pt referred to PT by {{PCP family med#}} regarding posterior R hip pain for the last 6-9 mo. Sometimes it radiates into her R anterior thigh but that pain doesn't last very long. Sometimes she has no pain, intensity up to 3-4/10. Feels worse after going on a long walk. Used to walk 4 miles with friends but now can't tolerate it. She finds herself limping afterwards. Tolerating 1-2 miles right now. Doesn't tolerate sitting, car rides very well. Wakes up with pain when she sleeps on her R side. Went to one session at [facility] for PT and didn't like it. Functional Limitations: bed mobility, sitting and walking tolerance Stated Goals: unlimited walking and sitting tolerance. GOMEZ MORRELL, PT, DPT [address] [place] [address], [id number] [facility] [place] 12:14:06 4 text/html PT Initial Eval*Reported bypatient.Prior Studies:x ray; 01/29 No acute bone abnormality. Associated Symptoms:dizziness;lighth eadedness; no nausea; no vomiting; no fever; no chills; no excessive fatigue; no confusion; no forgetfulness; no change in weight; no numbness; no tingling; no changes in urinary habits; no changes in bowel habits; no loss of pleasure or interest in activities; no feeling down or depressed; NOTES vertigo symptoms with positional changes IEPatient Specific Functional Score:left incomplete Pt referred to PT by {{PCP family med#}} regarding posterior R hip pain for the last 6-9 mo. Sometimes it radiates into her R anterior thigh but that pain doesn't last very long. Sometimes she has no pain, intensity up to 3-4/10. Feels worse after going on a long walk. Used to walk 4 miles with friends but now can't tolerate it. She finds herself limping afterwards. Tolerating 1-2 miles right now. Doesn't tolerate sitting, car rides very well. Wakes up with pain when she sleeps on her R side. Went to one session at [facility] for PT and didn't like it. Functional Limitations: bed mobility, sitting and walking tolerance Stated Goals: unlimited walking and sitting tolerance. Re-eval 05/16/24Re-evaluation {{ #1#}} following {{ 3#}} PT visits. Since initial evaluation, patient reports significant improvement. Improvements noted in {{ her core strength and walking ability#}}. She has started to plan a walking tour with some friends in [place]. She continues to have twinges of pain with transfers. Patient states preference to {{continue PT treatment at this time. continue PT treatment at decreased frequency. discharge from PT care and manage independently.*}} GOMEZ MORRELL, PT, DPT [address] [place] [address], [id number] [facility] [place] 13:32:54 OBGyn Episode No OBEpisode recorded.
== END ==
PROVIDERS: PCP Nurse Practitioner; Visit Provider Nurse Practitioner Family
DX: H92.01 Otalgia, right ear (principal); G89.29 Other chronic pain; R90.89 Other abnormal findings on diagnostic imaging of central nervous system; G43.009 Migraine without aura, not intractable, without status migrainosus; R42 Dizziness and giddiness
CPT/HCPCS: 99214